=== PATIENT | male | born 1935 ===

== ENCOUNTER 2021-06-03 23:07 | Emergency (ER) | payer MEDICARE, OTHER ==
[2021-06-04] LABS: BASOPHIL 0.2 % (0-2); EOSINOPHIL 0.2 % (0-7); HCT 35.9 % (42.0-52.0); HGB 11.7 g/dl (13.2-18.0); LYMPHOCYTE 6.6 % (15-48); MCH 33.5 pg (25.0-31.0); MCHC 32.6 g/dL (32.0-36.0); MCV 102.9 fL (78.0-100.0); MONOCYTE 9.7 % (0-12); NEUTROPHIL 82.8 % (41-80); NRBC 0; PLT 348 K/uL (150-400); RBC 3.49 M/uL (4.70-6.00); RDW 14.1 % (11.5-14.0); WBC 13.5 K/uL (4.0-10.5)
[2021-06-04 00:13] LABS: INR 1.61 (0.9-1.2); PROTHROMBIN TIME 18.4 SECONDS (11.8-13.4); PTT 43.3 SECONDS (24.4-34.7)
[2021-06-04 00:26] LABS: BUN/CREAT RATIO (CALC) 18.9 RATIO; CREATININE 1.32 mg/dL (0.67-1.17); POTASSIUM 3.7 mmol/L (3.5-5.1)
[2021-06-04 01:11] LABS: BACTERIA 3+; BILIRUBIN 1+ mg/dL (NEGATIVE); BLOOD 3+ Ery/uL (NEGATIVE); CLARITY CLOUDY (CLEAR); COLOR RED (YELLOW); GLUCOSE (U) NORMAL (NORMAL); LEUKOCYTES TRACE Leu/uL (NEGATIVE); NITRITE NEGATIVE (NEGATIVE); PROTEIN 2+ mg/dL (NEGATIVE); SPECIFIC GRAVITY 1.025 (1.001-1.030); URINARY RBC TNTC; UROBILINOGEN 0.2 mg/dL (0.2-1.0); pH 5.5 (5.0-9.0)
[2021-06-04 01:12] LABS: AMORPHOUS URATES CRYSTALS MODERATE; MUCOUS MODERATE
== END 2021-06-04 08:50 | disposition home or self-care (01) ==
LOC: FER 23:07
PROVIDERS: Emergency Medicine Emergency Medical Services
DX: T83.028A Displacement of other urinary catheter, initial encounter (principal); R31.0 Gross hematuria; I48.91 Unspecified atrial fibrillation; I50.9 Heart failure, unspecified; Z88.0 Allergy status to penicillin
CPT/HCPCS: 36415; 80048; 81001; 85025; 85610; 85730; 87076; 87088; 87186

== ENCOUNTER 2021-06-09 16:19 | Emergency (ER) | payer MEDICARE, OTHER | END 2021-06-09 21:13 | disposition home or self-care (01) | LOC: FER 16:19 | DX: S01.01XA Laceration without foreign body of scalp, initial encounter (principal); I48.91 Unspecified atrial fibrillation; Z88.2 Allergy status to sulfonamides; W04.XXXA Fall while being carried or supported by other persons, initial encounter; Y92.129 Unspecified place in nursing home as the place of occurrence of the external cause | CPT/HCPCS: 70450 ==